=== PATIENT | female | born 1990 | race Caucasian/White ===

== ENCOUNTER 2019-10-05 13:57 | Observation (INO) ==
[2019-10-05] MEDS ORDERED: 0.9 % Sodium Chloride 1,000 ML IVC ONE (14:34)
[2019-10-05 15:08] LABS: Basophils # 0.1 K/mcL (0.0-0.2); Basophils % 0.9 %; Eosinophils # 0.2 K/mcL (0.0-0.6); Eosinophils % 2.2 %; Hematocrit 38.6 % (35.3-44.9); Hemoglobin 12.4 g/dL (11.5-15.4); Immature Granulocytes % 0.7 % (0-4); Lymphocytes # 2.5 K/mcL (0.6-4.6); Lymphocytes % 37.1 %; Mean Corpuscular HGB Conc 32.1 g/dL (31.6-35.5); Mean Corpuscular Hemoglobin 28.7 pg (28.0-33.3); Mean Corpuscular Volume 89.4 fL (83.0-100.0); Mean Platelet Volume 10.5 fL (9.4-12.4); Monocytes # 0.6 K/mcL (0.0-1.3); Neutrophils # 3.4 K/mcL (1.6-8.9); Platelet Count 312 K/mcL (140-400); Red Blood Count 4.32 M/mcL (3.82-4.97); Red Cell Distribution Width 14.4 % (11.5-14.5); Segmented Neutrophils % 50.1 %; White Blood Count 6.8 K/mcL (4.3-11.1)
[2019-10-05 15:18] LABS: Prothrombin Time 10.9 Seconds (9.4-12.1)
[2019-10-05 15:21] LABS: Activated Partial Thrombo Time 32.6 Seconds (26.0-36.0)
[2019-10-05 15:25] LABS: Alanine Aminotransferase 55 Units/L (7-52); Albumin 4.1 g/dL (3.5-5.7); Albumin/Globulin Ratio 1.2 (1.1-2.2); Alkaline Phosphatase 72 Units/L (34-104); Aspartate Amino Transferase 33 Units/L (13-39); BUN/Creatinine Ratio 16 (6-26); Bilirubin,Indirect 0.3 mg/dL (0.0-1.0); Bilirubin,Total 0.3 mg/dL (0.3-1.0); Blood Urea Nitrogen 14 mg/dL (6-20); Calcium 9.2 mg/dL (8.6-10.3); Carbon Dioxide 21 mEq/L (23-29); Chloride 106 mEq/L (98-107); Globulin 3.5 g/dL (2.4-3.5); Glucose 106 mg/dL (70-105); Magnesium 1.8 mg/dL (1.6-2.6); Osmolality,Calculated 285 (280-300); Phosphorous 3.3 mg/dL (2.7-4.5); Potassium 3.7 mEq/L (3.5-5.1); Sodium 137 mEq/L (136-145); Total Protein 7.6 g/dL (6.4-8.9); Troponin I < 0.03 ng/mL (< 0.04); eGFR For African Americans > 60 (> 60); eGFR For Non-African Americans > 60 (> 60)
[2019-10-05] MEDS ORDERED: *HR* FentaNYL (PF) 100 MCG/2 ML VIAL IVP ONE (15:25)
[2019-10-05] MEDS ORDERED: Ondansetron 4 MG/2 ML VIAL IVP STA (15:25)
[2019-10-05] MEDS ORDERED: 0.9 % Sodium Chloride 1,000 ML IVC STA (15:28)
[2019-10-05 15:39] LABS: Bilirubin,Urine Negative (Negative); Blood,Urine Negative (Negative); Clarity,Urine Clear (Clear); Color,Urine Yellow (Yellow); Glucose,Urine (UA) Normal (Normal); Ketones,Urine Negative (Negative); Leukocyte Esterase,Urine Negative (Negative); Nitrite,Urine Negative (Negative); Protein,Urine Negative (Neg-Trace); Specific Gravity,Urine 1.017 (1.010-1.025); Urobilinogen,Urine Normal (Normal)
[2019-10-05] MEDS ORDERED: Isovue-370 500 ML BOTTLE IVP ONE (15:42)
[2019-10-05] MEDS ORDERED: Piperacillin/Tazobactam 3.375 GM in 0.9 % Sodium Chloride Mini Bag 100 ML IVPB ONE (16:25)
[2019-10-05] MEDS ORDERED: Ondansetron 4 MG/2 ML VIAL IVP PRN (17:51)
[2019-10-05] MEDS ORDERED: *HR* FentaNYL (PF) 100 MCG/2 ML VIAL ONE ×2 (21:28→22:53)
[2019-10-05] MEDS ORDERED: *HR* Propofol 200 MG/20 ML VIAL IVP ONE ×2 (21:28→22:54)
[2019-10-05] MEDS ORDERED: *HR* Midazolam HCl 2 MG/2 ML VIAL ONE ×2 (21:28→22:23)
[2019-10-05] MEDS ORDERED: Bupivacaine/EPI 1:200k 0.5%PF 30 ML VIAL ONE (21:28)
[2019-10-05] MEDS ORDERED: Dexamethasone 4 MG/ML VIAL ONE (21:32)
[2019-10-05] MEDS ORDERED: Lidocaine -MPF 2% 2 ML VIAL ONE ×2 (21:32→22:23)
[2019-10-05] MEDS ORDERED: *HR* Rocuronium Bromide 50 MG/5 ML VIAL ONE (21:32)
[2019-10-05] MEDS ORDERED: Ondansetron 4 MG/2 ML VIAL ONE (21:32)
[2019-10-05] MEDS ORDERED: Famotidine 20 MG/2 ML VIAL ONE (22:09)
[2019-10-05] MEDS ORDERED: Acetaminophen IV 1,000 MG/100 ML INFUS..BTL ONE (22:09)
[2019-10-05] MEDS ORDERED: Scopolamine Patch 1.5 MG PATCH.TD72 ONE (22:09)
[2019-10-05] MEDS ORDERED: *HR* OxyCODONE Immed Rel 5 MG TABLET PO PRN (23:20)
[2019-10-05] MEDS ORDERED: Pregabalin 75 MG CAPSULE PO PRN (23:20)
[2019-10-05] MEDS ORDERED: *HR* Labetalol 20 MG/4 ML SYRINGE IVP PRN (23:20)
[2019-10-05] MEDS ORDERED: *HR* HYDROmorphone 2 MG TABLET PO PRN (23:20)
[2019-10-05] MEDS ORDERED: *HR* HYDROMORPHONE 2 MG/ML VIAL ONE (23:22)
[2019-10-06] MEDS ORDERED: Piperacillin/Tazobactam 3.375 GM in 0.9 % Sodium Chloride Mini Bag 100 ML IVPB SCH
[2019-10-06] MEDS ORDERED: *HR* OxyCODONE/APAP 5/325 TABLET PO PRN (00:12)
[2019-10-06] MEDS: *HR* Promethazine 25 MG/ML VIAL IVP PRN ×4 (00:23→01:01)
[2019-10-06] MEDS: *HR* HYDROmorphone (PF) 1 MG/ML SYRINGE IVP PRN ×8 (00:30→02:02)
[2019-10-06] MEDS ORDERED: Dexamethasone 4 MG/ML VIAL ONE (00:43)
[2019-10-06] MEDS ORDERED: *HR* Midazolam HCl 2 MG/2 ML VIAL ONE (00:44)
[2019-10-06] MEDS ORDERED: Ondansetron 4 MG/2 ML VIAL ONE (00:44)
[2019-10-06] MEDS: *HR* Midazolam HCl 2 MG/2 ML VIAL IVP PRN ×2 (00:45→01:01)
[2019-10-06] MEDS ORDERED: Ondansetron 4 MG/2 ML VIAL IVP ONE (00:51)
[2019-10-06] MEDS ORDERED: Dexamethasone 4 MG/ML VIAL IVP ONE (00:51)
[2019-10-06] MEDS ORDERED: *HR* HYDROmorphone 2 MG/ML SYRINGE ONE (01:09)
[2019-10-06] MEDS ORDERED: *HR* Atropine Sulfate 1 MG/10 ML SYRINGE ONE (01:31)
[2019-10-06] MEDS ORDERED: *HR* Promethazine 25 MG/ML VIAL ONE (01:31)
[2019-10-06] MEDS: *HR* OxyCODONE/APAP 5/325 TABLET PO PRN ×3 (04:35→18:00)
[2019-10-06] MEDS: Piperacillin/Tazobactam 3.375 GM in 0.9 % Sodium Chloride Mini Bag 100 ML IVPB SCH ×3 (04:35→20:17)
[2019-10-06] MEDS: Ketorolac 15 MG/ML VIAL IVP SCH ×4 (05:46→23:58)
[2019-10-06] MEDS ORDERED: Ketorolac 15 MG/ML VIAL IVP SCH (06:00)
[2019-10-06] MEDS: Ondansetron 4 MG/2 ML VIAL IVP PRN ×2 (09:59→20:44)
[2019-10-06] MEDS: Topiramate 25 MG TABLET PO SCH ×2 (12:03→20:20)
[2019-10-06] MEDS ORDERED: Promethazine 25 MG in 0.9 % Sodium Chloride 50 ML IVP PRN (13:53)
[2019-10-06] MEDS ORDERED: *HR* Promethazine 25 MG/ML VIAL IVP PRN ×2 (13:59→14:06)
[2019-10-06] MEDS: Promethazine 25 MG in 0.9 % Sodium Chloride 50 ML IVP PRN (14:29)
[2019-10-06] MEDS: tiZANidine 4 MG TABLET PO SCH (14:36)
[2019-10-06] MEDS ORDERED: tiZANidine 4 MG TABLET PO SCH ×2 (15:00→21:00)
[2019-10-06] MEDS: *HR* Heparin 5,000 UNIT/ML VIAL SQ SCH (17:56)
[2019-10-06] MEDS ORDERED: *HR* Heparin 5,000 UNIT/ML VIAL ONE (17:58)
[2019-10-06] MEDS: 0.9 % Sodium Chloride 1,000 ML IVC SCH ×2 (19:36→19:38)
[2019-10-07] MEDS: *HR* OxyCODONE/APAP 5/325 TABLET PO PRN (01:08)
[2019-10-07] MEDS: Promethazine 25 MG in 0.9 % Sodium Chloride 50 ML IVP PRN (01:09)
[2019-10-07] MEDS ORDERED: diazePAM 5 MG TABLET PO ONE (01:59)
[2019-10-07] MEDS: Piperacillin/Tazobactam 3.375 GM in 0.9 % Sodium Chloride Mini Bag 100 ML IVPB SCH (04:48)
[2019-10-07] MEDS: *HR* Heparin 5,000 UNIT/ML VIAL SQ SCH (06:24)
[2019-10-07] MEDS: Ketorolac 15 MG/ML VIAL IVP SCH (06:26)
[2019-10-07] MEDS: Ondansetron 4 MG/2 ML VIAL IVP PRN (06:26)
[2019-10-07] MEDS: tiZANidine 4 MG TABLET PO SCH (08:34)
[2019-10-07] MEDS: Topiramate 25 MG TABLET PO SCH (08:35)
[2019-10-07] MEDS ORDERED: *HR* OxyCODONE Immed Rel 5 MG TABLET PO PRN (09:21)
[2019-10-07] MEDS ORDERED: Cyanocobalamin (B-12) 1,000 MCG TABLET PO SCH (09:30)
[2019-10-07] MEDS ORDERED: Folic Acid 1 MG TABLET PO SCH (09:30)
[2019-10-07] MEDS ORDERED: Cholecalciferol (D-3) 1,000 UNIT (25MCG) TABLET PO SCH (09:30)
[2019-10-07 10:05] VITALS: BP 98/61
== END 2019-10-07 12:40 | disposition home or self-care (01) ==
LOC: 3ANU 13:57 → EMEROOARM 13:57 → 3ANU 17:30
PROVIDERS: ADMIT Surgery; ATTEND Surgery

== ENCOUNTER 2020-08-30 12:09 | Observation (INO) ==
[2020-08-30] MEDS ORDERED: Isovue-370 500 ML BOTTLE IVP ONE (12:32)
[2020-08-30 12:49] LABS: Basophils # 0.1 K/mcL (0.0-0.2); Basophils % 0.6 %; Eosinophils # 0.3 K/mcL (0.0-0.6); Eosinophils % 2.6 %; Hematocrit 40.8 % (35.3-44.9); Hemoglobin 12.9 g/dL (11.5-15.4); Immature Granulocytes % 0.5 % (0-4); Lymphocytes # 3.6 K/mcL (0.6-4.6); Lymphocytes % 34.9 %; Mean Corpuscular HGB Conc 31.6 g/dL (31.6-35.5); Mean Corpuscular Hemoglobin 27.8 pg (28.0-33.3); Mean Corpuscular Volume 87.9 fL (83.0-100.0); Mean Platelet Volume 10.6 fL (9.4-12.4); Monocytes # 0.9 K/mcL (0.0-1.3); Monocytes % 8.9 %; Neutrophils # 5.5 K/mcL (1.6-8.9); Platelet Count 255 K/mcL (140-400); Red Blood Count 4.64 M/mcL (3.82-4.97); Red Cell Distribution Width 13.1 % (11.5-14.5); Segmented Neutrophils % 52.5 %; White Blood Count 10.4 K/mcL (4.3-11.1)
[2020-08-30 13:06] LABS: Alanine Aminotransferase 42 Units/L (7-52); Albumin/Globulin Ratio 1.2 (1.1-2.2); Alkaline Phosphatase 80 Units/L (34-104); Aspartate Amino Transferase 23 Units/L (13-39); BUN/Creatinine Ratio 16 (6-26); Bilirubin,Total 0.3 mg/dL (0.3-1.0); Blood Urea Nitrogen 14 mg/dL (6-20); Calcium 9.3 mg/dL (8.6-10.3); Carbon Dioxide 23 mEq/L (23-29); Chloride 105 mEq/L (98-107); Globulin 3.3 g/dL (2.4-3.5); Glucose 100 mg/dL (70-105); Osmolality,Calculated 287 (280-300); Potassium 3.8 mEq/L (3.5-5.1); Sodium 138 mEq/L (136-145); Total Protein 7.3 g/dL (6.4-8.9); Troponin I < 0.03 ng/mL (< 0.04); eGFR For African Americans > 60 (> 60); eGFR For Non-African Americans > 60 (> 60)
[2020-08-30] MEDS: *HR* OxyCODONE Immed Rel 15 MG TABLET PO PRN ×2 (17:33→20:23)
[2020-08-30] MEDS: tiZANidine 4 MG TABLET PO SCH (20:15)
[2020-08-30] MEDS: Pregabalin 50 MG CAPSULE PO SCH (20:18)
[2020-08-30] MEDS: Acetaminophen 325 MG TABLET PO PRN (20:19)
[2020-08-30] MEDS: Topiramate 25 MG TABLET PO SCH (20:19)
[2020-08-30] MEDS: Diclofenac Sodium (DR) 50 MG TABLET.DR PO SCH (21:09)
[2020-08-31] MEDS: *HR* OxyCODONE Immed Rel 15 MG TABLET PO PRN ×4 (00:37→19:46)
[2020-08-31] MEDS: tiZANidine 4 MG TABLET PO SCH ×3 (04:27→19:46)
[2020-08-31 06:44] LABS: Prothrombin Time 11.5 Seconds (9.4-12.1)
[2020-08-31 06:59] LABS: Chol/HDL Ratio 5.3 (0-4.9)
[2020-08-31] MEDS: Acetaminophen 325 MG TABLET PO PRN ×2 (08:17→21:47)
[2020-08-31] MEDS: Diclofenac Sodium (DR) 50 MG TABLET.DR PO SCH ×3 (08:18→21:48)
[2020-08-31] MEDS: Topiramate 25 MG TABLET PO SCH ×2 (08:18→21:40)
[2020-08-31] MEDS: Pregabalin 50 MG CAPSULE PO SCH ×3 (08:18→21:40)
[2020-08-31] MEDS: Cyanocobalamin (B-12) 1,000 MCG TABLET PO SCH (08:18)
[2020-08-31 08:21] LABS: Estimated Average Glucose 100 mg/dl; Hemoglobin A1C 5.1 %
[2020-08-31] MEDS: Aspirin Enteric Coated 81 MG Tablet PO SCH (10:08)
[2020-08-31] MEDS ORDERED: *HR* LORazepam 2 MG/ML VIAL IVP PRN (12:23)
[2020-09-01] MEDS: tiZANidine 4 MG TABLET PO SCH ×2 (03:55→12:23)
[2020-09-01] MEDS: *HR* OxyCODONE Immed Rel 15 MG TABLET PO PRN ×2 (05:01)
[2020-09-01 05:22] LABS: Hematocrit 38.3 % (35.3-44.9); Hemoglobin 12.2 g/dL (11.5-15.4); Mean Corpuscular HGB Conc 31.9 g/dL (31.6-35.5); Mean Corpuscular Hemoglobin 28.1 pg (28.0-33.3); Mean Corpuscular Volume 88.2 fL (83.0-100.0); Mean Platelet Volume 10.8 fL (9.4-12.4); Platelet Count 255 K/mcL (140-400); Red Blood Count 4.34 M/mcL (3.82-4.97); Red Cell Distribution Width 13.2 % (11.5-14.5); White Blood Count 6.7 K/mcL (4.3-11.1)
[2020-09-01] MEDS: Acetaminophen 325 MG TABLET PO PRN (07:20)
[2020-09-01] MEDS: Diclofenac Sodium (DR) 50 MG TABLET.DR PO SCH (09:22)
[2020-09-01] MEDS: Aspirin Enteric Coated 81 MG Tablet PO SCH (09:22)
[2020-09-01] MEDS: Pregabalin 50 MG CAPSULE PO SCH (09:22)
[2020-09-01] MEDS: Cyanocobalamin (B-12) 1,000 MCG TABLET PO SCH (09:22)
[2020-09-01] MEDS: Topiramate 25 MG TABLET PO SCH (09:22)
[2020-09-01 11:09] VITALS: BP 115/60
== END 2020-09-01 12:57 | disposition home health service (06) ==
LOC: 3BNU 12:09 → EMEROOARM 12:09 → SUATTDRO 15:37 → 3BNU 16:01
PROVIDERS: ADMIT Internal Medicine; ATTEND Nurse Practitioner